=== PATIENT | female | born 1990 | race Caucasian/White ===

== ENCOUNTER 2018-01-11 01:00 | Emergency (ER) | payer SELFPAY ==
[~2018-01-11] VITALS: Ht 162.6 cm; Wt 77.1 kg
[2018-01-11 01:14] VITALS: BP_SYST 118
[2018-01-11 02:13] VITALS: BP_SYST 118
== END 2018-01-11 02:13 | disposition home or self-care (01) ==
LOC: SED 01:00
DX: M54.31 Sciatica, right side (principal); K21.9 Gastro-esophageal reflux disease without esophagitis; F41.9 Anxiety disorder, unspecified; G43.909 Migraine, unspecified, not intractable, without status migrainosus
CPT/HCPCS: 99283

== ENCOUNTER 2018-02-12 08:33 | Emergency (ER) | payer SELFPAY ==
[~2018-02-12] VITALS: Ht 162.6 cm; Wt 77.1 kg
[2018-02-12 08:36] VITALS: BP_SYST 130
[2018-02-12] MEDS ORDERED: KETOROLAC TROMETHAMINE 60 MG/2 ML VIAL IM ONE (09:00)
[2018-02-12 09:10] VITALS: BP_SYST 130
== END 2018-02-12 09:10 | disposition home or self-care (01) ==
LOC: SED 08:33
DX: M54.41 Lumbago with sciatica, right side (principal); K21.9 Gastro-esophageal reflux disease without esophagitis; G43.909 Migraine, unspecified, not intractable, without status migrainosus; F41.9 Anxiety disorder, unspecified
CPT/HCPCS: 81025; 96372; 99283; J1885